=== PATIENT | male | born 1955 | race Caucasian/White ===

== ENCOUNTER 2020-11-13 09:06 | Outpatient (CLI) | payer MEDICARE, OTHER, SELFPAY ==
--- NOTE | ~2020-11-13 | XR_ITS ---
XR foot LT min 3V DATE: 11/13/2020 09:33 INDICATION: Third and fourth metatarsal and heel pain TECHNIQUE: 3 weightbearing views COMPARISON: None FINDINGS: Mild plantar calcaneal enthesopathy. Mild osteoarthritic change at the first metatarsophalangeal joint. No fracture or dislocation, periosteal reaction or bone destruction. IMPRESSION: Mild plantar calcaneal enthesopathy Mild osteoarthritis at first metatarsophalangeal joint Reviewed, dictated and finalized at location A.
== END 2020-11-13 09:07 | disposition home or self-care (01) ==
LOC: CHSIMG 09:12
PROVIDERS: PCP Internal Medicine; Visit Provider Podiatrist
DX: M77.42 Metatarsalgia, left foot (principal); M79.672 Pain in left foot
CPT/HCPCS: 73630